=== PATIENT | female | born 1965 | race American Indian/Alaskan Native ===

== ENCOUNTER 2024-03-11 08:52 | Emergency (ER) | payer SELFPAY ==
[2024-03-11] VITALS (18 sets, daily range): BP systolic 116–144; BP diastolic 68–83; PULSE 91–106; RESP 16–20; TEMP 36.3; O2SAT 89–100
--- NOTE | 2024-03-11 09:11 | W.ED.GENAD ---
Discharge Plan Disposition Patient Disposition: Home Condition: Stable Discharge Details Clinical Impression: Acute diverticulitis Primary Care Provider: Leandra Hernandez ED Provider: Kj Eller Home Meds and New Rx's Prescriptions: New amoxicillin-pot clavulanate 875-125 mg tablet 1 tab PO BID Qty: 27 0RF Discharge Instructions Instructions: Diverticulitis Additional Instructions: Please contact your primary care physician to arrange follow-up. Be sure to discuss findings of your CT scan including acute diverticulitis in the mid sigmoid colon as well as 2.0 x 2.7 cm left adrenal mass. Radiology recommends that an MRI of the adrenal glands without and with contrast is recommended. Discussed this with your doctor hannah. Return to the ER immediately for any worsening or new concerning symptoms. Referrals: Leandra Hernandez MD [Primary Care Provider] - [facility] General Mode of arrival: ambulatory. Date/Time Provider Initiated Documentation: 03/11/24 08:58. Limitations to Documentation: no limitations. Information obtained by: patient. HPI Narrative: 59-year-old female presents with chief complaint of abdominal pain. Patient notes pain started yesterday. Pain localized to lower abdomen centrally. Pain described as a dull ache that is constant. She has associated chills and hot flashes since yesterday. No nausea vomiting or diarrhea. No vaginal discharge. No urinary symptoms. Related Data Home Medications ?Medication ?Instructions ?Recorded ?Confirmed amoxicillin 875 mg-potassium 1 tab PO BID #27 tabs 03/11/24 clavulanate 125 mg tablet Previous Rx's ?Medication ?Instructions ?Recorded amoxicillin 875 mg-potassium 1 tab PO BID #27 tabs 03/11/24 clavulanate 125 mg tablet Allergies Allergy/AdvReac Type Severity Reaction Status Date / Time No Known Allergies Allergy Unverified 03/11/24 08:57 General Stated Complaint: Abd Prob GERALDO: 3 Review of Systems All systems reviewed & are unremarkable except as noted in HPI and below Constitutional Constitutional: Reports as per HPI Gastrointestinal Gastrointestinal: Reports as per HPI and Reports abdominal pain Exam Const General: cooperative and no acute distress HENMT Mouth: moist mucous membranes Eyes Conjunctivae: normal conjunctivae Sclera: normal sclerae Neck Neck: trachea midline and supple Resp Auscultation: no rales and no wheezes Cardio Rate: regular rate and not tachycardic Rhythm: regular rhythm GI Palpation: soft, not firm, no guarding, no masses, not rigid and tender (Suprapubic) in the LLQ Skin General skin exam: no rashes or lesions noted Neuro General: patient alert, patient awake and tone normal Extrem General: no edema Psych Appearance: grossly normal Mental Status: mental status grossly normal Course Vital Signs Vital signs: Vital Signs Temperature 36.3 C L 03/11/24 08:55 Pulse 106 H 03/11/24 08:55 Respiratory Rate 20 03/11/24 08:55 Blood Pressure 144/83 H 03/11/24 08:55 Pulse Oximetry 99 03/11/24 08:55 Temperature 36.3 C L 03/11/24 09:05 Temperature Source Temporal Artery Scan 03/11/24 09:05 Pulse 106 H 03/11/24 09:05 Respiratory Rate 20 03/11/24 09:05 Respiratory Effort Normal, Non-Labored 03/11/24 08:57 Blood Pressure 144/83 H 03/11/24 09:05 Blood Pressure Position Sitting 03/11/24 09:05 Pulse Oximetry 99 03/11/24 09:05 Pain Level 5 03/11/24 09:05 Medical Decision Making 912-- a 59-year-old female here today with abdominal pain, described as a dull ache that started yesterday with associated chills and hot flashes. Denies urinary symptoms. Patient does have lower abdominal tenderness suprapubic as well as left lower quadrant. No peritoneal findings. Consider urinary tract infection will obtain urinalysis. Will check screening labs. --Labs reviewed and leukocytosis noted. Urinalysis is not consistent with UTI. Will proceed to CT of the abdomen pelvis to assess for acute surgical pathology including potentially acute diverticulitis. 1145 --CT of the abdomen pelvis was interpreted by radiology:1. Findings suspicious for acute diverticulitis in the mid sigmoid colon. No abscess or free air. 2. Fluid-filled loops of small and large bowel which can be seen with a diarrheal illness. 3. There is a 2.0 x 2.7 cm left adrenal mass. This may represent an adenoma. A an MRI of the adrenal glands without and with contrast is recommended for further evaluation. Plan to initiate treatment with Augmentin. Initial dose was provided here. Plan for close outpatient follow-up with PCP. Patient was instructed to follow-up with PCP regarding recommended outpatient diagnostics including MRI. Usual and customary discharge instructions were reviewed with the patient. Lab Data Lab results reviewed: Yes I reviewed the patient's lab results. Labs: Laboratory Tests Range/Units 03/11/24 03/11/24 03/11/24 09:00 09:18 10:07 WBC (4.4-10.8) 10^3/uL 23.64 H RBC (3.93-5.22) 10^6/uL 4.94 Hgb (11.2-15.7) g/dL 14.7 Hct (36.0-46.0) % 43.1 MCV (80-95) fL 87 MCH (27.0-33.0) pg 29.8 MCHC (32.0-36.0) % 34.1 RDW (11.7-14.6) % 13.7 Plt Count (130-400) 10^3/uL 349 MPV (8.0-11.0) fL 10.0 Immature Gran % % 0.6 Neutrophils % % 88.0 Lymphocytes % % 7.0 Monocytes % % 4.1 Eosinophils % % 0.0 Basophils % % 0.3 Nucleated RBC % (0.0-0.3) % 0.0 Absolute Neutrophils (1.2-6.7) 10^3/uL 20.80 H Absolute Lymphocytes (1.2-3.4) 10^3/uL 1.65 Absolute Monocytes (0.1-0.8) 10^3/uL 0.97 H Absolute Eosinophils (0.0-0.7) 10^3/uL 0.00 Absolute Basophils (0.0-0.2) 10^3/uL 0.07 Sodium (136-145) mmol/L 140 Potassium (3.5-5.1) mmol/L 3.5 Chloride (98-107) mmol/L 103 Carbon Dioxide (21.0-32.0) mmol/L 27.1 Anion Gap (3-11) mmol/L 9.9 BUN (7-18) mg/dL 11 Creatinine (0.55-1.02) mg/dL 0.8 Est GFR (CKD-EPI 2020) (mL/min/1.73m2) 84.30 Glucose (74-106) mg/dL 122 H Calcium (8.5-10.1) mg/dL 9.3 Magnesium (1.8-2.4) mg/dL 2.0 Total Bilirubin (0.2-1.0) mg/dL 0.63 AST (15-37) U/L 17 ALT (14-59) U/L 19 Alkaline Phosphatase (46-116) U/L 93 Total Protein (6.4-8.2) g/dL 7.3 Albumin (3.4-5.0) g/dL 3.7 Lipase (16-77) U/L 34 Urine Color (Yellow) Sofi Urine Clarity (Clear) Clear Urine pH (5-8) 5.5 Ur Specific [place] (1.005-1.025) 1.025 Urine Protein (Neg-Trace) mg/dL 30 H Urine Ketones (Negative) mg/dL 40 H Urine Blood (Negative) Trace-intact H Urine Nitrite (Negative) Negative Urine Bilirubin (Negative) Small H Urine Urobilinogen (Up to 0.2) mg/dL 0.2 Ur Leukocyte Esterase (Negative) Negative Urine RBC (0-2) HPF 3-5 H Urine WBC (0-5) HPF 3-5 Ur Epithelial Cells (Negative) HPF Many Urine Crystals (Negative) HPF Negative Urine Bacteria (Negative) HPF Many Urine Casts (Negative) LPF Negative Urine Mucus (Negative) Heavy Urine Other (Negative) Negative Ur Culture Indicated? No/Sq. Contamination Urine Glucose (Negative) mg/dL Negative COVID-19 Source Nasopharynx SARS-CoV-2 (PCR) (Negative) Negative Influenza Type A (PCR) (Negative) Negative Influenza Type B (PCR) (Negative) Negative RSV (PCR) (Negative) Negative Quality:SDOH Health Related Social Needs: No Data to Display PFSH All Active Problems (Updated 03/11/24 @ 11:46 by Kj Eller MD) Acute diverticulitis (Acute) Social History Smoking/Tobacco Use Status: Current every day Tobacco Type: cigarettes Tobacco: How many years used: 16 Smoking risk assessment performed?: Yes Alcohol Intake: current Alcohol Intake frequency: holidays/special occasions only Drug use: Daily Substance use type: marijuana Do you feel safe in your relationship?: Yes
[2024-03-11 09:12] LABS: Abs Immature Grans 0.14 10^3/uL (0.0-0.06); Absolute Lymphocyte Count 1.65 10^3/uL (1.2-3.4); Basophils % 0.3 %; HCT 43.1 % (36.0-46.0); HGB 14.7 g/dL (11.2-15.7); Immature Grans % 0.6 %; MCH 29.8 pg (27.0-33.0); MCHC 34.1 % (32.0-36.0); MCV 87 fL (80-95); Monocytes % 4.1 %; Platelet Count 349 10^3/uL (130-400); RBC 4.94 10^6/uL (3.93-5.22); RDW 13.7 % (11.7-14.6); RDW-SD 43.9 fL; WBC 23.64 10^3/uL (4.4-10.8)
[2024-03-11 09:13] LABS: Absolute Basophil Count 0.07 10^3/uL (0.0-0.2); Absolute Monocyte Count 0.97 10^3/uL (0.1-0.8)
[2024-03-11 09:31] LABS: ALT 19 U/L (14-59); AST 17 U/L (15-37); Albumin 3.7 g/dL (3.4-5.0); Alkaline Phosphatase 93 U/L (46-116); Anion Gap 9.9 mmol/L (3-11); BUN 11 mg/dL (7-18); Bilirubin, Total 0.63 mg/dL (0.2-1.0); CO2 27.1 mmol/L (21.0-32.0); CREATININE 0.8 mg/dL (0.55-1.02); Calcium 9.3 mg/dL (8.5-10.1); Chloride 103 mmol/L (98-107); Glucose 122 mg/dL (74-106); Potassium 3.5 mmol/L (3.5-5.1); Sodium 140 mmol/L (136-145); Total Protein 7.3 g/dL (6.4-8.2)
[2024-03-11 09:34] LABS: Lipase 34 U/L (16-77)
[2024-03-11 09:37] LABS: Bilirubin Small (Negative); Blood Trace-intact (Negative); Clarity Clear (Clear); Glucose Negative (Negative); Ketones 40 mg/dL (Negative); Leukocyte Esterase Negative (Negative); Nitrite Negative (Negative); Specific Gravity 1.025 (1.005-1.025); Urobilinogen 0.2 mg/dL (Up to 0.2); pH 5.5 (5-8)
[2024-03-11 09:53] LABS: Bacteria Many HPF (Negative); Crystals Negative HPF (Negative); Epithelial Cells Many HPF (Negative); Other Cells Negative (Negative)
[2024-03-11 09:54] LABS: C & S Indicated? No/Sq. Contamination; Casts Negative LPF (Negative); Mucus Heavy (Negative)
[2024-03-11] MEDS: Omnipaque 350 MG/ML 100 ML BTL 85 ML IJ (10:17)
[2024-03-11] MEDS: Normal Saline - Diluent 50 ML VIAL IJ (10:18)
--- NOTE | 2024-03-11 10:29 | DI.CT_ITS ---
Exam(s) CT ABDOMEN PELVIS W EXAM: CT ABDOMEN PELVIS W CLINICAL HISTORY: lower abdominal pain, fever, leukocytosis TECHNIQUE: Imaging Protocol: Axial computed tomography images with coronal and sagittal reformatted images were created and reviewed. CONTRAST MATERIAL: Intravenous: Omnipaque 350 Contrast volume:85 mL Oral: No COMPARISON: No exams were available for comparison FINDINGS: ABDOMEN: Lung Bases: Normal where visualized. Liver: Normal density. There are few tiny hypodensities seen in the liver likely reflecting cysts. N o suspicious hepatic masses are present. Portal, Superior Mesenteric, and Splenic Veins: Unremarkable. Gallbladder and Biliary Tract: No radiodense calculus or dilation. Pancreas: Normal density, no abnormal calcifications or inflammatory process. Spleen: Normal. Adrenals: There is a 2.0 x 2.7 cm hypodense left adrenal mass. This may reflect an adrenal adenoma. Kidneys: Normal size, contour and axis. No radiodense stones or obstructive uropathy. No masses seen. Abdominal Aorta: Abdominal portion non-dilated. Atherosclerotic calcification is present. Bowel: There is diverticulosis of the colon. There is bowel wall thickening seen in the mid sigmoid colon. There also appears to be mild inflammation in the surrounding soft tissues concerning for acu te diverticulitis. There are fluid-filled loops of small and large bowel which can be seen with a di arrheal illness. The stomach is incompletely distended limiting evaluation. There collapsed loops o f small bowel limiting evaluation. This likely is secondary to peristalsis. There is apparent wall thickening in the terminal ileum. Again, this may be due to poor distension. No evidence of appendi citis. Peritoneal Cavity: No ascites, collection or mesenteric inflammatory response. No free air. Lymph Nodes: Within normal limits. Bones: Within normal limits for the patient's age. Soft Tissues: Unremarkable. PELVIS: Bladder: Symmetric distention, no gross wall thickening. Reproductive Organs: Unremarkable as visualized. Lymph Nodes: Within normal limits. Bones: Within normal limits for the patient's age. IMPRESSION: 1. Findings suspicious for acute diverticulitis in the mid sigmoid colon. No abscess or free air. 2. Fluid-filled loops of small and large bowel which can be seen with a diarrheal illness. 3. There is a 2.0 x 2.7 cm left adrenal mass. This may represent an adenoma. A an MRI of the adrena l glands without and with contrast is recommended for further evaluation. Unexpected findings RADIATION DOSE DELIVERED: 318.69mGy.cm Total DLP DATA REPOSITORY: All CT scans at this facility are submitted to the National Radiology Data Registry (NRDR) Dose Index Registry (DIR) with the [employer] (A[employer]). RADIATION OPTIMIZATION: All CT scans at this facility use at least one of these dose optimization te chniques: automated exposure control; mA and/or kV adjustment per patient size (includes targeted exa ms where dose is matched to clinical indication); or iterative reconstruction.
[2024-03-11 10:56] LABS: COVID-19 PCR Negative (Negative); Influenza A PCR Negative (Negative); Influenza B PCR Negative (Negative); RSV PCR Negative (Negative)
[2024-03-11 10:57] LABS: Source Nasopharynx
[2024-03-11] MEDS: Amoxicillin 875/Clav. 125 TAB PO (11:58)
--- NOTE | 2024-03-16 08:38 | NUR.NOTE ---
Accessed chart to get information to do a referral for needs PCP for Unexpected findings on CT. Nursing Note:
== END 2024-03-11 12:00 | disposition home or self-care (01) ==
PROVIDERS: Emergency Provider Student in an Organized Health Care Education/Training Program
DX: K57.32 Diverticulitis of large intestine without perforation or abscess without bleeding (principal); E27.8 Other specified disorders of adrenal gland
CPT/HCPCS: 36415; 80053; 83690; 87637; 99285; 74177; 81003; 81015; 83735; 85025; 99284; J3490

== ENCOUNTER 2024-06-17 00:06 | Outpatient (CLI) | payer MEDICAID, SELFPAY ==
--- NOTE | 2024-06-17 07:00 | DI.CTLCSR_ITS ---
Exam(s) CT CHEST LUNG CANCER SCREEN EXAM: CT CHEST LUNG CANCER SCREEN CLINICAL HISTORY: Screening for lung cancer,cigarette smoker, f17.210 TECHNIQUE: Imaging Protocol: Axial computed tomography images with coronal and sagittal reformatted images were created and reviewed. Low dose screening protocol. COMPARISON: CT CT ABDOMEN PELVIS W from 03/11/2024 FINDINGS: Tracheobronchial tree: No bronchiectasis or mucus plugging. Mediastinum and Paty: No dominant adenopathy or fluid collection. Pulmonary parenchyma: No consolidation or dominant measurable mass. Mild emphysematous changes. No si gnificant interstitial changes. Lung Nodules: 2 4 millimeter nodules in the right middle lobe. 3 millimeter nodule left upper lobe. Pleura: No effusion. No pneumothorax. Heart: The heart is not dilated. Minimal coronary artery calcifications are seen. No pericardial effu tyrone. Aorta: Thoracic aorta non-dilated.Mild atherosclerotic calcification. Upper abdomen: Low attenuation smoothly marginated lesion of the left adrenal gland noted with Houns field units close to water, consistent with an adenoma. No change in size from the prior exam. No f ollow-up recommended. Bones: Unremarkable for age. Soft Tissues: Unremarkable. IMPRESSION: No suspicious pulmonary nodules. Lung RADS Cat 2 - Benign Appearance / Behavior: Nodules with a very low likelihood of becoming a clin ically active cancer due to size or lack of growth Lung-RADS 1.0 CATEGORIES: Category 0 - Prior chest CT exam(s) being located for comparison. Category 1 - Annual screening in 12 months. No nodules or definitely benign nodules. Category 2 - Annual screening in 12 months. Benign appearance. Nodules with low likelihood of becomin g active cancer. Category 3 - 6-month follow-up. Probably benign. Short-term follow-up suggested. Nodules with low lik elihood of becoming active cancer. Category 4A - 3-month follow-up and CT/PET if >8 mm in size. Suspicious finding. Findings which requi re additional testing. Category 4B - Findings which require additional testing and tissue sampling. Category 4X - Category 3 or 4 nodules with additional features or imaging findings that increases the suspicion of malignancy. Modifier S- Potentially clinically significant findings (non lung cancer) RADIATION DOSE DELIVERED: !Error Total DLP DATA REPOSITORY: All CT scans at this facility are submitted to the National Radiology Data Registry (NRDR) Dose Index Registry (DIR) with the [employer] (ACR). RADIATION OPTIMIZATION: All CT scans at this facility use at least one of these dose optimization te chniques: automated exposure control; mA and/or kV adjustment per patient size (includes targeted exa ms where dose is matched to clinical indication); or iterative reconstruction.
--- NOTE | 2024-06-17 13:09 | DI.MAMMO_ITS ---
Exam(s) MAMMO SCREENING EXAM: MAMMO SCREENING CLINICAL HISTORY: screening,z12.39. TECHNIQUE: Bilateral full field digital CC and MLO mammographic images were obtained with 3D tomosyn thesis and utilizing computer aided detection (CAD). COMPARISON: . This is a baseline mammogram. FINDINGS: There is a slightly lobulated nodular density in the lateral aspect of the left breast measuring 9 by 7 mm, located 7 cm in from the nipple. Further imaging recommended. In the opposite-right breast there are 2 nodular densities towards the upper outer quadrant. One shaw sures approximately 5 x 4 mm and is located 4 cm in from the nipple. The other measures 7 x 6 mm and is located 8 cm in from the nipple. There are no malignant-appearing microcalcification groups in either breast There is no significant architectural distortion nor skin thickening-retraction. IMPRESSION: Lateral asymmetric densities-nodules. Bilateral spot compression views and bilateral breast ultrasou nd recommended BI-RADS Category 0 - Incomplete: Need additional imaging evaluation Breast Density - Category B - Scattered areas of fibroglandular density Breast density Category C or D implies that the patient has dense breast tissue. Dense breast tissue can make it harder to find cancer on a mammogram. Dense breast tissue is also associated with an incr eased risk of breast cancer. This information about the result of the mammogram report was provided to the patient to raise their awareness. Use this report when you speak with the patient about their risks for breast cancer, which includes their family history. At that time, you may recommend additional screening tests (Ultrasoun d or MRI) as these tests may add significant information. A negative radiographic report should not delay biopsy if a dominant or clinically suspicious mass is present. Up to ten percent of cancers are not identified on mammography. A negative report may reinforce clinical impression. Adenosis and dense breasts may obscure an underlying neoplasm. False positive reports average 6 to 10%. Patient will receive a letter notifying them of these results.
== END 2024-06-17 00:26 ==
LOC: DI 00:06
PROVIDERS: PCP Family Medicine; Visit Provider Family Medicine
DX: Z12.31 Encounter for screening mammogram for malignant neoplasm of breast (principal); F17.210 Nicotine dependence, cigarettes, uncomplicated; Z12.2 Encounter for screening for malignant neoplasm of respiratory organs
CPT/HCPCS: 71271; 77063; 77067

== ENCOUNTER 2024-06-29 02:05 | Outpatient (CLI) | payer MEDICAID, SELFPAY ==
--- NOTE | 2024-06-29 | DI.US_ITS ---
Exam(s) US BREAST RT LIMITED US BREAST LT LIMITED MG MAMMO SCREEN CALL BACK BI EXAM: MG MAMMO SCREEN CALL BACK BI CLINICAL HISTORY: F/U ABNL MAMMO, LATERAL ASYMMETRIC DENSITIES NODULES. TECHNIQUE: Spot compression digital Mammography views of the bothbreasts with Tomosynthesis followe d by bilateral breast ultrasound. COMPARISON: MG MG MAMMO SCREENING from 06/17/2024 US US BREAST RT LIMITED from 06/29/2024 US US BREAST LT LIMITED from 06/29/2024 FINDINGS: RIGHT BREAST: Mammography/Tomosynthesis: Masses/Architectural Distortion: None seen. Microcalcifictions: No suspicious pleomorphic-type are seen. Skin Thickening/Nipple Retraction: None. Right breast US: Echotexture: Normal appearance of the glandular tissue. Island of dense tissue in the upper outer qu adrant. Shadowing: No suspicious foci. Cyst: None. Solid lesions: None seen. Ductal dilation: Mild ductal dilatation in the subareolar region. LEFT BREAST: Mammography/Tomosynthesis: Masses/Architectural Distortion: Persistent circumscribed nodule in the lateral breast measuring 8 mi llimeters. Not definitely seen on the MLO view. Microcalcifictions: No suspicious pleomorphic-type are seen. Skin Thickening/Nipple Retraction: None. No abnormal lymph nodes. Left breast ultrasound: Echotexture: Normal appearance of the glandular tissue. Shadowing: No suspicious foci. Cyst: 6 x 4 millimeter cyst 12 o'clock position 4 cm from the nipple. 3 x 2 x 5 millimeter cyst 6 o' clock position 1 cm from the nipple. Solid lesions: Solid hypoechoic lesion in the upper outer quadrant, 3 cm from the nipple measuring 7 by 6 x 5 millimeters. The borders are somewhat ill-defined and lobulated. No shadowing or associate d echogenic foci. Ductal dilation: None. Lymph nodes: Axillary lymph node measuring 2.1 x 0.6 x 1.4 which appears hypervascular. A fatty hilum is maintained. Findings could represent a reactive lymph node however malignancy is not excluded. IMPRESSION: 1. Right breast: No evidence of malignancy is noted. 2. Left breast: Mildly suspicious 7 millimeter nodule in the upper outer quadrant of the left breast. Biopsy recommended. This could be performed under ultrasound guidance. Mildly enlarged hyperemic left axillary lymph node. The findings were discussed with the patient on the date of the examination and called to [facility] of [facility].. BI-RADS Category 4 - Suspicious Abnormality: Biopsy should be considered Breast Density - Category B - Scattered areas of fibroglandular density A negative radiographic report should not delay biopsy if a dominant or clinically suspicious mass is present. Up to ten percent of cancers are not identified on mammography. A negative report may reinforce clinical impression. Adenosis and dense breasts may obscure an underlying neoplasm. False positive reports average 6 to 10%. Patient will receive a letter notifying them of these results.
== END 2024-06-29 02:25 ==
LOC: DI 02:05
PROVIDERS: PCP Family Medicine; Visit Provider Family Medicine
DX: Z12.31 Encounter for screening mammogram for malignant neoplasm of breast (principal); N60.02 Solitary cyst of left breast
CPT/HCPCS: 76642; 77063; 77067

== ENCOUNTER 2024-07-12 01:23 | Outpatient (CLI) | payer MEDICAID, SELFPAY ==
[2024-07-12] MEDS: Gadoterate meglumine 20 ML VIAL 13 ML IVP (08:44)
--- NOTE | 2024-07-12 09:05 | DI.MRI_ITS ---
Exam(s) MR ABDOMEN WO/W EXAM: MR ABDOMEN WO/W CLINICAL HISTORY: left adrenal mass,e27.8 TECHNIQUE: Multiplanar multisequence MRI of the Abdomen was performed. CONTRAST MATERIAL: IV Contrast: 13 mL of Dotarem contrast administered. COMPARISON: CT CT ABDOMEN PELVIS W from 03/11/[address] CHEST LUNG CANCER SCREEN from 06/17/2024 FINDINGS: Lung bases: Unremarkable. Liver: There again seen several simple cysts in the liver. No suspicious hepatic masses are present. Pancreas: Unremarkable. No evidence of a pancreatic mass or peripancreatic fluid collection. Gallbladder and Bile Ducts: There is no evidence of cholelithiasis. No biliary ductal dilatation is present. Adrenals: The right adrenal gland is unremarkable. There is a 2.7 x 1.8 cm left adrenal nodule. It exhibits loss of signal on the opposed images consistent with fat. The findings are most consistent with an adrenal adenoma. Kidneys: Unremarkable. No evidence of a renal mass or hydronephrosis. Spleen: Unremarkable. Bowel: There is diverticulosis seen in the colon without evidence of diverticulitis at this time. Th e visualized bowel shows no evidence of obstruction or bowel wall thickening. Aorta: Unremarkable. Soft Tissues: Unremarkable. Bone: There are degenerative changes seen at the lumbosacral junction. Lymph Nodes: Unremarkable. IMPRESSION: 2.7 x 1.8 cm left adrenal nodule which shows loss of signal in the opposed images consistent with fat . The findings are most consistent with an adrenal adenoma. DATA REPOSITORY:
== END 2024-07-12 01:43 ==
LOC: DI 01:23
PROVIDERS: PCP Family Medicine; Visit Provider Family Medicine
DX: E27.8 Other specified disorders of adrenal gland (principal)
CPT/HCPCS: 74183

== ENCOUNTER 2024-07-28 02:36 | Outpatient (CLI) | payer MEDICAID, SELFPAY ==
[2024-07-28 13:04] LABS: Anion Gap 4.9 mmol/L (3-11); BUN 9 mg/dL (7-18); CO2 29.1 mmol/L (21.0-32.0); CREATININE 0.8 mg/dL (0.55-1.02); Calcium 9.2 mg/dL (8.5-10.1); Calculated LDL 162 mg/dL (<100); Chloride 108 mmol/L (98-107); Cholesterol 265 mg/dL (<200); Glucose 94 mg/dL (74-106); HDL Cholesterol 84 mg/dL (>or=50); Sodium 142 mmol/L (136-145); Triglyceride 96 mg/dL (<150)
== END 2024-07-28 02:37 | disposition home or self-care (01) ==
LOC: LOS 02:36
PROVIDERS: PCP Family Medicine; Visit Provider Family Medicine
DX: Z13.6 Encounter for screening for cardiovascular disorders (principal); I10 Essential (primary) hypertension; E27.8 Other specified disorders of adrenal gland
CPT/HCPCS: 36415; 80048; 80061

== ENCOUNTER 2024-11-25 10:40 | Outpatient (REF) | payer MEDICAID, SELFPAY ==
--- NOTE | 2024-11-25 10:20 | PAPFT_PTH ---
PATIENT: Stella Pringle LOC: [facility] U#:[id number] AGE/SX: 59/F ROOM: RE11/25/[address]: Alina Rao : 1965 BED: DIS: 11/25/2024 SPEC #: [id number] RECD: 11/25/24 12:34 STATUS: JOVANY REAkanksha #: [id number] MARCOS: 11/25/24 10:[address]: Alina Rao DEPT: [facility] Cytology RECD BY: Nelda Cartagena Tissues: 1 - CX/ENDOCX FOR PAP SMEARS Procedures: PAP THIN PREP/UVM Screening HPV DNA PROBE Comments: [id number] (HPV 16 & 18/45)
== END 2024-11-25 10:41 | disposition home or self-care (01) ==
LOC: LBN 10:40
PROVIDERS: PCP Family Medicine; Visit Provider Family Medicine
DX: Z11.51 Encounter for screening for human papillomavirus (HPV) (principal); Z01.419 Encounter for gynecological examination (general) (routine) without abnormal findings
CPT/HCPCS: 88142; 87624

== ENCOUNTER 2024-12-12 02:12 | Outpatient (CLI) | payer MEDICAID, SELFPAY ==
--- NOTE | 2024-12-12 07:15 | DI.MAMMO_ITS ---
Exam(s) US BREAST RT LIMITED US BREAST LT LIMITED MG MAMMO DIAGNOSTIC BI EXAM: MG MAMMO DIAGNOSTIC BI CLINICAL HISTORY: LT breast lump, f/u PREV IMAGING,ABNL MAMMO RT BREAST,N63.20,R92.8. TECHNIQUE: Full field and spot compression digital Mammography views of the bothbreasts with Tomosynthesis followed by bilateral breast ultrasound. COMPARISON: MG MG MAMMO SCREENING from 06/17/2024 US US BREAST RT LIMITED from 06/29/2024 MG MG MAMMO SCREEN CALL BACK BI from 06/29/2024 US US BREAST LT LIMITED from 06/29/2024 US US BREAST RT LIMITED from 12/12/2024 US US BREAST LT LIMITED from 12/12/2024 FINDINGS: RIGHT BREAST: Mammography/Tomosynthesis: Masses/Architectural Distortion: None seen. Microcalcifictions: No suspicious pleomorphic-type are seen. Skin Thickening/Nipple Retraction: None. Right breast US: Echotexture: Normal appearance of the glandular tissue. An island of dense tissue is again noted in the upper outer quadrant. Shadowing: No suspicious foci. Cyst: None. Solid lesions: None seen. LEFT BREAST: Mammography/Tomosynthesis: Masses/Architectural Distortion: Persistent nodule in the upper outer quadrant. Microcalcifictions: No suspicious pleomorphic-type are seen. Skin Thickening/Nipple Retraction: None. Left breast ultrasound: Echotexture: Normal appearance of the glandular tissue. Shadowing: No suspicious shadowing. Cyst: A few small cysts are again noted. Solid lesions: Slight increase versus measurement error of the previously noted solid nodule in the upper outer quadrant, now measuring 8 by 5 x 6 millimeters compared with 7 x 5 x 6 millimeters on the prior exam. The borders are again ill-defined and lobulated. Decreased size of previously noted left axillary lymph nodes. Decreased vascularity of the lymph nodes. IMPRESSION: 1. Right breast: No evidence of malignancy is noted. 2. Left breast: Slight increase in size of the previously noted solid nodule in the upper outer quadrant. Biopsy is again recommended. 3. The findings were discussed with the patient on the date of the examination. BI-RADS Category 4 - Suspicious Abnormality: Biopsy should be considered Breast Density - Category B - There are scattered areas of fibroglandular density. Breast density Category C or D implies that the patient has dense breast tissue. Dense breast tissue can make it harder to find cancer on a mammogram. Dense breast tissue is also associated with an increased risk of breast cancer. This information about the result of the mammogram report was provided to the patient to raise their awareness. Use this report when you speak with the patient about their risks for breast cancer, which includes their family history. At that time, you may recommend additional screening tests (Ultrasound or MRI) as these tests may add significant information. A negative radiographic report should not delay biopsy if a dominant or clinically suspicious mass is present. Up to ten percent of cancers are not identified on mammography. A negative report may reinforce clinical impression. Adenosis and dense breasts may obscure an underlying neoplasm. False positive reports average 6 to 10%. Patient will receive a letter notifying them of these results.
== END 2024-12-12 02:32 ==
LOC: DI 02:12
PROVIDERS: PCP Family Medicine; Visit Provider Family Medicine
DX: N63.21 Unspecified lump in the left breast, upper outer quadrant (principal); R92.8 Other abnormal and inconclusive findings on diagnostic imaging of breast
CPT/HCPCS: 76642; 77062; 77066; G0279

== ENCOUNTER 2025-01-25 11:23 | Outpatient (REF) | payer MEDICAID, SELFPAY ==
--- NOTE | 2025-01-25 11:10 | BREAST_PTH ---
PATIENT: Stella Pringle LOC: [facility] U#:[id number] AGE/SX: 60/F ROOM: RE01/25/[address]: Sara Alaniz MD : 1965 BED: DIS: 01/25/2025 SPEC #: [id number] RECD: 01/25/25 12:27 STATUS: JOVANY REQ #: [id number] MARCOS: 01/25/25 11:[address]: Sara Alaniz DEPT: Surgical Specimen RECD BY: Nelda Cartagena ENTERED: 01/25/25 12:28 SP TYPE: Breast OTHR DR: Alina Rao Tissues: 1 - BREAST BX NEEDLE Procedures: GROSS AND MICRO LEVEL 4 Comments: [id number]
== END 2025-01-25 11:24 | disposition home or self-care (01) ==
LOC: LBN 11:23
PROVIDERS: PCP Family Medicine; Referring Provider Surgery; Visit Provider Surgery
DX: N60.32 Fibrosclerosis of left breast (principal)
CPT/HCPCS: 88305

== ENCOUNTER 2025-01-25 15:33 | Outpatient (CLI) | payer MEDICAID, SELFPAY ==
--- NOTE | 2025-01-25 11:45 | DI.MAMMO_ITS ---
Exam(s) MAMMO DIAGNOSTIC UNI EXAM: MAMMO DIAGNOSTIC UNI CLINICAL HISTORY: left breast mass post biopsy, N63.20. TECHNIQUE: Craniocaudal and mediolateral oblique Full Field Digital Mammography views of the left breast with Computer Aided Diagnosis. COMPARISON: Comparison is made with prior examinations. FINDINGS: Mammography/Tomosynthesis: Masses/Architectural Distortion: There is a biopsy clip seen in the upper outer quadrant of the left breast 4 cm from the nipple. No discernible nodule can be seen at this site mammographically. This may be related to the post biopsy changes. The nodule, previously seen in the outer left breast on the craniocaudad view located 7 cm from the nipple, is still present and partially obscured. Microcalcifictions: No suspicious pleomorphic-type are seen. There is a stable benign type calcification in the medial left breast. Skin Thickening/Nipple Retraction: None. IMPRESSION: 1. Interval left breast biopsy. A nodule is not well visualized in this area. Correlation with the ultrasound-guided biopsy and the diagnostic ultrasound from 12/12/2024 is recommended. 2. Unless there is more urgent need, follow-up screening mammography is recommended, as per [employer] guidelines. Postprocedure mammogram for marker placement. Breast Density - Category C - The breast are heterogeneously dense, which may obscure small masses. Breast density category C or D implies that the patient has dense breast tissue. Dense breast tissue is very common and is not abnormal but dense breast tissue can make it harder to find cancer on a mammogram. Also, dense breast tissue may increase their breast cancer risk. This information about the result of the mammogram report was provided to the patient to raise their awareness. Use this report when you speak with the patient about their risks for breast cancer, which includes their family history. At that time, you may recommend for more screening tests (Ultrasound or MRI) as they might be useful based on their risk. A negative radiographic report should not delay biopsy if a dominant or clinically suspicious mass is present. Up to ten percent of cancers are not identified on mammography. A negative report may reinforce clinical impression. Adenosis and dense breasts may obscure an underlying neoplasm. False positive reports average 6 to 10%. Patient will receive a letter notifying them of these results.
== END 2025-01-25 15:53 ==
LOC: DI 15:33
PROVIDERS: PCP Family Medicine; Visit Provider Surgery
DX: Z12.31 Encounter for screening mammogram for malignant neoplasm of breast (principal); N63.21 Unspecified lump in the left breast, upper outer quadrant
CPT/HCPCS: 77061; 77065; G0279